=== PATIENT | male | born 1985 | race Caucasian/White ===

== ENCOUNTER 2017-12-01 12:26 | Emergency (ER) | payer OTHER ==
[~2017-12-01] VITALS: Ht 177.8 cm; Wt 74.8 kg
[2017-12-01 12:53] VITALS: BP 119/75
[2017-12-01] MEDS ORDERED: HYDROcodone-ACET 10/325MG TAB PO ONE (14:30)
== END 2017-12-01 15:09 | disposition home or self-care (01) ==
LOC: ER 12:26
DX: S01.91XA Laceration without foreign body of unspecified part of head, initial encounter (principal); K08.89 Other specified disorders of teeth and supporting structures; X58.XXXA Exposure to other specified factors, initial encounter; Y93.89 Activity, other specified; Y99.8 Other external cause status; Y92.89 Other specified places as the place of occurrence of the external cause
CPT/HCPCS: 12001; 12002; 70450